=== PATIENT | male | born 1940 | race Caucasian/White ===

== ENCOUNTER 2018-02-16 12:48 | Outpatient (RCR) | payer MEDICARE, SELFPAY | END 2018-03-06 23:59 | disposition home or self-care (01) | LOC: CR 12:48 | PROVIDERS: PCP Nurse Practitioner Family; Visit Provider Family Medicine | DX: Z95.2 Presence of prosthetic heart valve (principal); Z51.89 Encounter for other specified aftercare | CPT/HCPCS: S9472 ==

== ENCOUNTER 2018-03-08 12:14 | Outpatient (RCR) | payer MEDICARE, SELFPAY | END 2018-04-05 23:59 | disposition home or self-care (01) | LOC: CR 12:14 | PROVIDERS: PCP Nurse Practitioner Family; Visit Provider Family Medicine | DX: Z51.89 Encounter for other specified aftercare (principal) ==

== ENCOUNTER 2018-06-02 14:23 | Emergency (ER) | payer MEDICARE, SELFPAY ==
[2018-06-02] VITALS (65 sets, daily range): BP systolic 31–145; BP diastolic 13–90; PULSE 0–178; RESP 13–23; TEMP 36.1; O2SAT 66–100
[2018-06-02] MEDS: Normal Saline 1,000 ML 125 ML IV (14:35)
--- NOTE | 2018-06-02 14:50 | W.ED.GENAD ---
Discharge Plan Disposition Patient Disposition: Discharge Details Chief Complaint: CodeBlue Clinical Impression: Cardiac arrest, Brain mass, Metastatic cancer Primary Care Provider: Adri Coles ED Provider: Michael Larsen Discharge Data Date/Time: 06/02/18 20:37 Cause of : Cardiac arrest Medical Decision Making 14:50 --patient seen immediately on arrival. Patient arrives with EMS. Patient is a unknown elderly male who was last seen normal at 3 AM last night, found down by family this afternoon in his bathroom, first responders noted no pulse and started CPR. BLS crew arrived 15 minutes later and patient noted to be in asystole. CPR was continued. Medics arrived and gave epinephrine 1 mg IV x2 and had return of spontaneous circulation. No shockable rhythm was noted. ECG revealed RBBB with ST depressions laterally. Patient was intubated by auto overhauler without complication. Patient has received push dose epinephrine in route to ED to maintain adequate BP. On my initial assessment, patient was noted to initially be normotensive with a normal heart rate. Unresponsive, not breathing and requiring mechanical ventilation. While assessing the patient and establishing IV access, he quickly declined and lost pulses. PEA on monitor. CPR was reinitiated. ACLS protocol was followed and patient received 2 doses of 1 mg epinephrine IV. During CPR rhythm check he was noted to be in ventricular fibrillation and was successfully cardioverted with one biphasic shock at 200 J. He had ROSC after about 15 min CPR. He was started on a Levophed infusion. Bedside [id number] cardiac ultrasound performed by me and reveals diminished squeeze with no pericardial effusion. ECG reviewed and interpreted by me: Sinus bradycardia 55 bpm, right bundle branch block present, ST depressions noted laterally, PVCs. There is concern for potential trauma as patient was found down in the bathroom. A c-collar was applied. Patient is noted to be on Coumadin per recent primary care physician note. Plan to CT the head to assess for acute life-threatening hemorrhage. [employer] [facility] ambulance is not flying 08/08 weather. -- [facility] [place] call. 15:32 -- Troponin I 0.22. INR 5.1. No active bleeding. Awaiting CT results. -- VBG reveals severe acidosis. Vent adjusted. -- I was able to review PCP record:Patient has a past medical history of severe mitral regurgitation, renal cell carcinoma of the right kidney, A. fib, hyperlipidemia, fatty liver disease, malignant neoplasm of the bladder, anxiety disorder, hypertension, COPD, chronic kidney disease, AAA, CKD. -- Patient remains hypotensive, vasopressin added. CT head interpreted by radiology: large left frontal brain mass with edema and midline shift, no hemorrhage. CT chest and abd/pelv interpreted by radiology: mulitple mets in liver, ribs fractures, no hemorrhage. -- Patient remains hypotensive and unresponsive with no sedatives/paralytics, despite high dose pressors. Spoke with [facility] [place] and cardiology: they recommend no cardiac intervention. I am concerned about clinical instability and not safe for transport. [facility] [place] end of life discussion. I spoke with patient's and son and updated them regarding ED course and poor outlook. Palliative care was consulted. -- Patient maintained on max dose pressors and reamained unreponsive and requiring mechanical ventillation. Patient family including verbalized to Dr. Cmap desire to move toward comfort care only, after family arrives. Plan to admit to ICU. -- Additional family arrived. Patient suddenly noted to have bradycardia that rapidly progressed to asystole. No pulse. Continued invasive treatment was deemed futile. No cardiac activity on bedside US. Pt and pronounced at 18:10. -- Condolences provided to family. Family declines autopsy. HPI General Mode of arrival: EMS. Date/Time Provider Initiated Documentation: 06/02/18 14:26. Limitations to Documentation: altered mental status. Information obtained by: EMS. HPI Narrative: 77-year-old male present with EMS post cardiac arrest with ROSC. Patient found down and unresponsive by family. Possible down time of hours, last known well 3am. First responders found patient to be pulseless. CPR initiated. Medics arrived to find patient in PEA. After left tibia IO access, and multiple doses of epinephrine ROSC achieved. Patient was intubated by paramedics and mechanically ventilated. Patient remained hypotensive en route to emergency department requiring multiple doses of push dose epinephrine. Concern from scene that patient fell against wall. Past medical history and ROS limited secondary to altered mentation. Related Data Allergies Allergy/AdvReac Type Severity Reaction Status Date / Time No Known Allergies Allergy Unverified 06/02/18 17:46 Review of Systems Review of Systems Unobtainable due to endotracheal tube and Unobtainable due to mental status Exam Const General: ill appearing and patient mechanically ventilated Orientation: other (unresponsive) Limitations: altered mental status [facility] Head: no Boland's sign, no hematomas, no palpable skull fracture, No periorbital ecchymosis and other (left frontal scalp with post op wound) General nose exam: external nose normal Other: ET tube intact Eyes Pupils: dilated bilaterally and fixed bilaterally Neck Neck: no JVD Resp Auscultation: rales bilaterally Other: mechanically ventilated. bilateral chest rise. Cardio Rate: regular rate Rhythm: regular rhythm Heart Sounds: no murmurs Pulses: femoral pulses present on the left GI Palpation: soft, no pulsatile masses and not rigid Skin General skin exam: mottling, pallor and other (cyanosis) Wounds: wounds noted (left frontal scalp) Neuro General: other (unresponsive) Comatose Patient: corneal reflex absent and response to noxious stimuli absent Extrem General: pedal edema bilaterally Other: Left tibia IO intact Critical Care Time Critical Care Time: Yes Total Critical Care Time: 45 Attestation: I spent greater than 45minutes providing critical life sustaining treatment.
[2018-06-02 14:51] LABS: O2 Sat (Venous) 76 % (70-80); pO2 (Venous) 89 mm/Hg (28-44)
--- NOTE | 2018-06-02 14:55 | DI.CT_ITS ---
SYMPTOMS/DIAGNOSIS: CARDIAC ARREST S/P FALL NONCONTRAST HEAD CT: There are no prior comparison exams. An occipital craniotomy is seen. Nasogastric and endotracheal tubes are noted. There is a left parietal scalp laceration. No skull fracture is seen. There is evidence of chronic sinus disease. There is a large mass with severe surrounding edema in the left frontal lobe. The mass measures approximately 3.3 cm in diameter. There is significant mass effect upon the lateral ventricle, as well as midline shift, left to right of approximately 1 cm. No additional masses are identified. No hemorrhage is seen. There is nodular skin thickening of the scalp. IMPRESSION: Large mass in the left frontal lobe with significant surrounding mass effect and 1 cm of midline shift. CT OF THE CERVICAL SPINE: There are nondisplaced fractures of the right 1st and 2nd ribs. No pneumothorax is seen. Posterior densities are seen in the left upper lobe, which could represent atelectasis or infiltrate. No cervical spine fractures are seen. The alignment appears normal. There are degenerative changes, greatest of the facet joints. No prevertebral soft tissue swelling is seen. An occipital craniotomy is noted. There is some fluid seen around the craniotomy site. Endotracheal and nasogastric tubes are noted. There is some debris in the sinuses. The mastoid air cells appear clear. IMPRESSION: No evidence of cervical spine fracture. There are nondisplaced fractures of the right 1st and 2nd ribs. Infiltrate versus atelectasis is seen in the left upper lobe, which is not fully included on the exam. CHEST CT FOR PULMONARY EMBOLISM: CT angiography was performed with multi slice acquisition and multi planar and 3D reconstruction. There are no prior comparison exams. There is no evidence of pulmonary emboli or aortic dissection. Exam is limited by increased image noise. The ascending aorta is dilated 4.5 cm. Evaluation of the lungs is limited due to significant respiratory motion. No pneumothorax is seen. There is significant atelectasis seen posteriorly in the left lung. No mass is discernible. Multiple densities are seen posterior in the right lung, which could also represent atelectasis. Metastatic lesions are not excluded. There are fractures of the right 1st through 6th ribs laterally. There are fractures of the anterior right 2nd through 6th ribs, which are of indeterminate age. There are fractures of the left 2nd through 6th ribs. There are posterior rib fractures on the left, which appear old. IMPRESSION: No evidence of pulmonary embolism. Bilateral rib fractures. No pneumothorax. Bilateral posterior atelectasis. ABDOMINAL AND PELVIC CT: There are innumerable liver lesions suspicious for metastatic disease. The right kidney is absent. The left kidney shows poor perfusion and has a lobulated contour with several cysts versus masses. There has been a previous abdominal aortic aneurysm repair with an aortoiliac stent graft, which appears intact. No retroperitoneal or intraperitoneal hemorrhage is seen. The prostate is normal in size. The bladder is unremarkable. There is increased stool, particularly in the rectum. There is no evidence of obstruction. No spine or pelvic fractures are seen. IMPRESSION: Innumerable liver metastases. Surgically absent right kidney. Findings could represent metastatic renal cell carcinoma.
--- NOTE | 2018-06-02 14:55 | ED.GENADUL_ITS ---
Discharge Plan Disposition Patient Disposition: Discharge Details Chief Complaint: CodeBlue Clinical Impression: Cardiac arrest, Brain mass, Metastatic cancer Primary Care Provider: Adri Coles ED Provider: Michael Larsen Discharge Data Date/Time: 06/02/18 20:37 Cause of : Cardiac arrest Medical Decision Making 14:50 --patient seen immediately on arrival. Patient arrives with EMS. Patient is a unknown elderly male who was last seen normal at 3 AM last night, found down by family this afternoon in his bathroom, first responders noted no pulse and started CPR. BLS crew arrived 15 minutes later and patient noted to be in asystole. CPR was continued. Medics arrived and gave epinephrine 1 mg IV x2 and had return of spontaneous circulation. No shockable rhythm was noted. ECG revealed RBBB with ST depressions laterally. Patient was intubated by assistant scientist without complication. Patient has received push dose epinephrine in route to ED to maintain adequate BP. On my initial assessment, patient was noted to initially be normotensive with a normal heart rate. Unresponsive, not breathing and requiring mechanical ventilation. While assessing the patient and establishing IV access, he quickly declined and lost pulses. PEA on monitor. CPR was reinitiated. ACLS protocol was followed and patient received 2 doses of 1 mg epinephrine IV. During CPR rhythm check he was noted to be in ventricular fibrillation and was successfully cardioverted with one biphasic shock at 200 J. He had ROSC after about 15 min CPR. He was started on a Levophed infusion. Bedside [id number] cardiac ultrasound performed by me and reveals diminished squeeze with no pericardial effusion. ECG reviewed and interpreted by me: Sinus bradycardia 55 bpm, right bundle branch block present, ST depressions noted laterally, PVCs. There is concern for potential trauma as patient was found down in the bathroom. A c-collar was applied. Patient is noted to be on Coumadin per recent primary care physician note. Plan to CT the head to assess for acute life-threatening hemorrhage. [employer] air ambulance is not flying 08/08 weather. -- [facility] called: awaiting return call. 15:32 -- Troponin I 0.22. INR 5.1. No active bleeding. Awaiting CT results. -- VBG reveals severe acidosis. Vent adjusted. -- I was able to review PCP record:Patient has a past medical history of severe mitral regurgitation, renal cell carcinoma of the right kidney, A. fib, hyperlipidemia, fatty liver disease, malignant neoplasm of the bladder, anxiety disorder, hypertension, COPD, chronic kidney disease, AAA, CKD. -- Patient remains hypotensive, vasopressin added. CT head interpreted by radiology: large left frontal brain mass with edema and midline shift, no hemorrhage. CT chest and abd/pelv interpreted by radiology: mulitple mets in liver, ribs fractures, no hemorrhage. -- Patient remains hypotensive and unresponsive with no sedatives/paralytics, despite high dose pressors. Spoke with [facility] critical care and cardiology: they recommend no cardiac intervention. I am concerned about clinical instability and not safe for transport. [facility] recommends end of life discussion. I spoke with patient's and son and updated them regarding ED course and poor outlook. Palliative care was consulted. -- Patient maintained on max dose pressors and reamained unreponsive and requiring mechanical ventillation. Patient family including verbalized to Dr. Camp desire to move toward comfort care only, after family arrives. Plan to admit to ICU. -- Additional family arrived. Patient suddenly noted to have bradycardia that rapidly progressed to asystole. No pulse. Continued invasive treatment was deemed futile. No cardiac activity on bedside US. Pt and pronounced at 18:10. -- Condolences provided to family. Family declines autopsy. HPI General Mode of arrival: EMS . Date/Time Provider Initiated Documentation: 06/02/18 14:26 . Limitations to Documentation: altered mental status . Information obtained by: EMS . HPI Narrative: 77-year-old male present with EMS post cardiac arrest with ROSC. Patient found down and unresponsive by family. Possible down time of hours, last known well 3am. First responders found patient to be pulseless. CPR initiated. Medics arrived to find patient in PEA. After left tibia IO access, and multiple doses of epinephrine ROSC achieved. Patient was intubated by paramedics and mechanically ventilated. Patient remained hypotensive en route to emergency department requiring multiple doses of push dose epinephrine. Concern from scene that patient fell against wall. Past medical history and ROS limited secondary to altered mentation. Related Data Allergies Allergy/AdvReac Type Severity Reaction Status Date / Time No Known Allergies Allergy Unverified 06/02/18 17:46 Review of Systems Review of Systems Unobtainable due to endotracheal tube and Unobtainable due to mental status Exam Const General: ill appearing and patient mechanically ventilated Orientation: other (unresponsive) Limitations: altered mental status [facility] Head: no Boland's sign, no hematomas, no palpable skull fracture, No periorbital ecchymosis and other (left frontal scalp with post op wound) General nose exam: external nose normal Other: ET tube intact Eyes Pupils: dilated bilaterally and fixed bilaterally Neck Neck: no JVD Resp Auscultation: rales bilaterally Other: mechanically ventilated. bilateral chest rise. Cardio Rate: regular rate Rhythm: regular rhythm Heart Sounds: no murmurs Pulses: femoral pulses present on the left GI Palpation: soft, no pulsatile masses and not rigid Skin General skin exam: mottling, pallor and other (cyanosis) Wounds: wounds noted (left frontal scalp) Neuro General: other (unresponsive) Comatose Patient: corneal reflex absent and response to noxious stimuli absent Extrem General: pedal edema bilaterally Other: Left tibia IO intact Critical Care Time Critical Care Time: Yes Total Critical Care Time: 45 Attestation: I spent greater than 45minutes providing critical life sustaining treatment.
[2018-06-02 14:56] LABS: Abs Immature Grans 0.76 k/cumm (0.0-0.09); HCT 37.5 % (40.0-50.0); HGB 10.7 g/dL (13.5-17.5); Mean Corp. HGB Concentration 28.5 g/dL (32.0-36.0); Mean Corpuscular Hemoglobin 27.1 pg (27.0-33.0); Mean Corpuscular Volume 94.9 fL (80-95); RBC 3.95 m/cumm (4.50-6.00); RBC Distribution Width 16.4 % (11.8-14.1); White Blood Cell Count 9.52 k/cumm (4.4-10.8)
--- NOTE | 2018-06-02 15:03 | DI.RAD_ITS ---
SYMPTOMS/DIAGNOSIS: POSTINTUBATION PORTABLE SUPINE CHEST: There are no prior comparison exams. Leads overlie the chest. An endotracheal tube has been inserted with the tip at the level of the clavicles. A nasogastric tube is seen with the tip just below the diaphragm. There is artifact seen on the left lateral aspect of the film. The lungs are not well inflated. Sternal wires are seen. There is apparent right apical pleural thickening or scarring. The heart size appears within normal limits. There is enlargement of the shadow of the aortic arch. IMPRESSION: Satisfactory placement of endotracheal tube. The nasogastric tube should be advanced. Suboptimal evaluation of the lungs.
[2018-06-02 15:08] LABS: Absolute Eosinophil Count 0.29 k/cumm (0.0-0.7); Absolute Lymphocyte Count 3.62 k/cumm (1.2-3.4); Absolute Monocyte Count 0.57 k/cumm (0.11-0.7); Absolute Neutrophil Count 4.57 k/cumm (1.2-6.7); Atypical Lymphocytes % 3
[2018-06-02 15:09] LABS: Burr Cells (echinocyte) 2+; Diff Comment Manual Differential
[2018-06-02 15:10] LABS: Poikilocytes 2+
--- NOTE | 2018-06-02 15:10 | NUR.NOTE ---
Pt. to ct scan with RASHID Rodriguez and RT.
[2018-06-02 15:21] LABS: Prothrombin Time 46.7 sec (9.3-10.8)
[2018-06-02 15:31] LABS: ALT 736 U/L (12-78); AST 1052 U/L (15-37); Albumin 2.3 g/dL (3.4-5.0); Alkaline Phosphatase 111 U/L (46-116); Anion Gap 27.7 mmol/L (3-11); BUN 28 mg/dL (7-18); Bilirubin, Total 0.3 mg/dL (0.2-1.0); CO2 10.3 mmol/L (21.0-32.0); Calcium 8.5 mg/dL (8.5-10.1); Chloride 111 mmol/L (98-107); Estimated GFR 29.33 (mL/min/1.73m2); Glucose 227 mg/dL (70-100); Magnesium 3.1 mg/dL (1.8-2.4); NT-proBNP 585 pg/mL; Potassium 4.5 mmol/L (3.5-5.1); Sodium 149 mmol/L (136-145)
[2018-06-02 15:32] LABS: Troponin I 0.22 ng/mL (0.00-0.06)
[2018-06-02 15:33] LABS: Creatine Kinase 306 U/L (39-308); INR 5.1 (1.0-3.5)
[2018-06-02] MEDS: Omnipaque 350 MG/ML 100 ML BTL IJ (15:34)
[2018-06-02 15:50] LABS: pCO2 (Venous) 84 mm/Hg (34-47)
[2018-06-02 16:05] LABS: Bilirubin Negative (Negative); Blood Trace-intact (Negative); Clarity Clear; Glucose Negative (Negative); Ketones Negative (Negative); Leukocyte Esterase Negative (Negative); Nitrite Negative (Negative); Specific Gravity 1.025 (1.005-1.025); Urobilinogen 0.2 EU/dL (Up TO 0.2)
[2018-06-02 16:17] LABS: Bacteria Negative HPF (Negative); C & S Indicated? No; Casts Negative LPF (Negative); Crystals Negative HPF (Negative); Epithelial Cells Moderate HPF (Negative); Mucus Negative (Negative); Other Cells Negative (Negative)
--- NOTE | 2018-06-02 17:51 | NUR.NOTE ---
norepinephrine drip increased gradually from 14 to 50 mcg/min.Nursing Note:
--- NOTE | 2018-06-07 14:14 | NUR.NOTE ---
06/02 a second bag of Levophed 4mg started at approx 1730.Nursing Note:
== END 2018-06-02 20:38 | disposition expired ==
PROVIDERS: Nurse Practitioner Family; Emergency Provider Student in an Organized Health Care Education/Training Program; PCP Nurse Practitioner Family
DX: I46.9 Cardiac arrest, cause unspecified (principal); G93.9 Disorder of brain, unspecified; C78.7 Secondary malignant neoplasm of liver and intrahepatic bile duct; I45.10 Unspecified right bundle-branch block; I48.91 Unspecified atrial fibrillation; I12.9 Hypertensive chronic kidney disease with stage 1 through stage 4 chronic kidney disease, or unspecified chronic kidney disease; N18.9 Chronic kidney disease, unspecified
CPT/HCPCS: 36415; 51702; 71275; 74177; 80053; 82550; 82805; 86900; 86901; 96361; 96365; 96366; 96375; 99291; 70450; 71045; 72125; 81003; 81015; 83605; 83735; 83880; 84484; 85025; 85610; J3490